=== PATIENT | male | born 1980 | race Caucasian/White ===

== ENCOUNTER 2016-11-22 18:25 | Emergency (ER) | payer MEDICAID ==
[~2016-11-22] VITALS: Ht 175.3 cm; Wt 89.0 kg
[2016-11-22 18:28] VITALS: Ht 175.3 cm; Wt 89.0 kg
[2016-11-22] MEDS ORDERED: FAMOTIDINE 20 MG INJ IV ONE (20:00)
[2016-11-22] MEDS ORDERED: LIDOCAINE/MYLANTA 40 ML BTL PO ONE (20:00)
[2016-11-22] MEDS ORDERED: ACETAMINOPHEN 325 MG TAB PO ONE (20:30)
[2016-11-22] MEDS ORDERED: SOD CHLORIDE 0.9% 1,000 ML IV ONE (20:30)
--- NOTE | 2016-11-22 20:37 | RADRPT ---
PROCEDURE: CT Abdomen and Pelvis without contrast CLINICAL INDICATION: Abdominal pain TECHNIQUE: Transaxial images were obtained through the abdomen and pelvis on a multi-slice scanner without the intravenous contrast administration. No oral contrast had previously been given. Sagit navarro and coronal re-formations were subsequently reconstructed. One or more of the following dose reduction techniques were used: - Automated exposure control. - Adjustment of the mA and/or kV according to patient size. - Use of iterative reconstruction technique. Radiation dose: CTDIvol = 14.49 mGy; DLP = 883.24 mGy-cm. COMPARISON: No prior studies are available for comparison. FINDINGS: Lung bases: Discoid atelectasis is seen within the posterior right lung base and vague ground-glass infiltrates are seen within the posterior lung bases. Liver: The liver is borderline enlarged with no focal lesion identified. Gallbladder: The wall is not thickened. No radiopaque stones are identified. Bile ducts: The intra and extrahepatic bile ducts are normal in caliber. Pancreas: Appears normal with no mass or inflammation evident. Spleen: Normal in size with no focal lesion. Adrenals: Normal with no mass identified. Kidneys, ureters and bladder: The kidneys are normal in size and there is no mass, pathological calc ification, or hydronephrosis evident. There is no perinephric stranding. The ureters are normal in c aliber and no ureteroliths are identified. The bladder appears unremarkable. Reproductive organs: Unremarkable. Stomach and bowel: The stomach is moderately distended with food debris. The small bowel appears un remarkable. There is mild concentric thickening of the wall of the rectum and stranding within the pararectal fat compatible with inflammatory change. The colon is otherwise unremarkable and there i s no evidence of bowel obstruction. Appendix: A normal vermiform appendix is evident. Peritoneum: No free intraperitoneal fluid or air is identified. There is a small fat containing left inguinal hernia. Aorta: Normal in caliber with no aneurysmal dilatation. IVC: Unremarkable. Lymph nodes: There are prominent inguinal nodes bilaterally which are largely composed of fat and th erefore benign in appearance. Osseous structures: There is mild diffuse anterior degenerative enthesopathy seen to the spine. IMPRESSION: 1. Mild concentric thickening of the rectal wall with stranding within the perirectal fat suspiciou s for proctitis. There is no evidence of bowel obstruction. The stomach is mildly distended with f ood debris. There is a normal vermiform appendix. 2. Small fat containing left inguinal hernia. 3. No abscess, free intraperitoneal fluid or free intraperitoneal air is identified. 4. Borderline hepatomegaly with no focal lesion. 5. Diffuse degenerative endplate changes seen to the visualized spine. 6. Discoid atelectasis seen within the posterior right right lung base with vague ground-glass infi ltrates seen within the posterior lower lobes. Physician Adolfo Date Time Electronically viewed and signed by Physician Adolfo on 11/22/2016 20:37 RH/
[2016-11-22 21:04] LABS: BASOPHILS % 0.3 % (0.0-2.0); EOSINOPHILS # 0.2 10^3/ul (0.0-0.5); EOSINOPHILS % 1.1 % (0.0-7.0); HEMATOCRIT 41.1 % (42.0-52.0); HEMOGLOBIN 14.5 g/dl (14.0-18.0); LYMPHOCYTES # 1.3 10^3/ul (0.8-2.9); LYMPHOCYTES % 8.9 % (15.0-51.0); MEAN CORPUSCULAR HEMOGLOBIN 30.3 pg (29.0-33.0); MEAN CORPUSCULAR HGB CONC 35.3 g/dl (32.0-37.0); MEAN PLATELET VOLUME 10.9 fl (7.4-10.4); MONOCYTE # 1.2 10^3/ul (0.3-0.9); MONOCYTES % 8.1 % (0.0-11.0); NEUTROPHILS % 81.1 % (39.0-77.0); PLATELET COUNT 238 10^3/UL (140-415); RED BLOOD COUNT 4.78 10^6/ul (4.70-6.10); RED CELL DISTRIBUTION WIDTH 12.7 % (11.5-14.5)
[2016-11-22 21:09] LABS: ADD UMIC YES; UR ASCORBIC ACID NEGATIVE (NEGATIVE); UR BILIRUBIN (Dip) NEGATIVE (NEGATIVE); UR BLOOD (Dip) NEGATIVE (NEGATIVE); UR CLARITY CLEAR (CLEAR); UR COLOR YELLOW (YELLOW); UR GLUCOSE (Dip) 1+ mg/dL (NEGATIVE); UR KETONES (Dip) NEGATIVE (NEGATIVE); UR LEUKOCYTE ESTERASE (Dip) NEGATIVE Leu/ul (NEGATIVE); UR NITRITE (Dip) NEGATIVE (NEGATIVE); UR RBC 5 /HPF (0-5); UR SPECIFIC GRAVITY (Dip) 1.027 (1.003-1.030); UR TOTAL PROTEIN (Dip) 1+ mg/dl (NEGATIVE); UR UROBILINOGEN (Dip) 2+ mg/dL (NEGATIVE)
[2016-11-22 21:37] LABS: ALBUMIN 4.4 g/dl (3.3-4.9); ALBUMIN/GLOBULIN RATIO 1.07; BILIRUBIN,INDIRECT 1.2 mg/dl (0-1.1); BILIRUBIN,TOTAL 1.2 mg/dl (0.2-1.3); CALCIUM 9.4 mg/dl (8.4-10.2); CREATININE 1.11 mg/dl (0.61-1.24); POTASSIUM 3.8 mmol/L (3.5-5.1); TOTAL PROTEIN 8.5 g/dl (6.1-8.1)
[2016-11-22] MEDS ORDERED: morphine 4 MG/ML VIAL IV STA (22:00)
[2016-11-22] MEDS ORDERED: metroNIDAZOLE 500 MG TAB PO ONE (23:00)
[2016-11-22] MEDS ORDERED: CIPROFLOXACIN 500 MG TAB PO ONE (23:00)
[2016-11-22] MEDS ORDERED: HYDR-906 PO (23:02)
[2016-11-22] MEDS ORDERED: CIPR500T4 PO (23:02)
[2016-11-22] MEDS ORDERED: METR500T PO (23:02)
[2016-11-22 23:30] VITALS: BP 129/88; PULSE 86; RESP 20; TEMP 98.9
--- NOTE | 2016-11-22 23:43 | ERD ---
ER Documentation Chief Complaint Date/Time DATE: 11/22/16 TIME: 23:39 Chief Complaint upper abd pain radaiting to right thigh, right lower leg x 2 days HPI 36-year-old male patient with a past medical history of colitis and gastritis presents to the ED complaining of diffuse abdominal pain as well as right buttocks pain that radiates down his leg that started about 2 days ago. Patient reports that he started to have a fever earlier today. Describes the pain as sharp and rates it a 10 out of 10. Denies any chest pain, shortness of breath, wheezing, nausea, vomiting, diarrhea, constipation. States that he does take Nexium for his gastritis. Denies any melena, hematemesis. Denies any scrotal pain, dysuria. ROS All systems reviewed and are negative except as per history of present illness. Medications Home Meds Active Scripts Hydrocodone/Acetaminophen (Antoine 5-325 Tablet) 1 Each Tablet, 1 TAB PO Q6H Y for PAIN, #7 TAB Prov:KHUSHI ROLAND PA-C 11/22/16 Ciprofloxacin Hcl* (Ciprofloxacin Hcl*) 500 Mg Tablet, 500 MG PO BID for 10 Days , TAB Prov:KHUSHI ROLAND PA-C 11/22/16 Metronidazole* (Flagyl*) 500 Mg Tablet, 500 MG PO TID for 10 Days, TAB Prov:KHUSHI ROLAND PA-C 11/22/16 Allergies Allergies: Coded Allergies: No Known Allergy (Unverified , 11/22/16) PMhx/Soc History of Surgery: No Anesthesia Reaction: No Hx Neurological Disorder: No Hx Respiratory Disorders: No Hx Cardiac Disorders: No Hx Psychiatric Problems: No Hx Miscellaneous Medical Probl: No Hx Alcohol Use: No Hx Substance Use: No Hx Tobacco Use: No Smoking Status: Never smoker Physical Exam Vitals Vital Signs Date Time Temp Pulse Resp B/P Pulse Ox O2 Delivery O2 Flow Rate FiO2 11/22/16 23:30 98.9 86 20 129/88 98 Room Air 11/22/16 18:28 100.3 106 20 132/92 98 Physical Exam Const: [id number], well-nourished. In no acute distress. Head: Atraumatic, normocephalic Eyes: Normal Conjunctiva without injection. No purulent discharge. ENT: Normal external ear, nose. Moist oropharynx without tonsillar exudates. Non -erythematous pharynx. Uvula midline. No drooling. No trismus. Neck: No cervical midline tenderness. Full range of motion. No meningismus. No cervical lymphadenopathy. No JVD. Resp: Clear to auscultation bilaterally. No wheezing, rhonchi, rales, or crackles. No accessory muscle use. No retractions. Cardio: Regular rate and rhythm. No murmurs, rubs or gallops. Abd: Soft, diffuse tenderness, non distended. Normal bowel sounds. No palpable masses. No rebound tenderness. No guarding. Negative McBurney's point. Negative psoas sign. Negative obturator sign. Skin: No petechiae or rashes Back: No midline tenderness. No CVA tenderness. Ext: No cyanosis, or edema. Neur: Awake and alert. Normal gait. Normal coordination. Psych: Normal Mood and Affect Results 24 hrs Laboratory Tests Test 11/22/16 20:41 White Blood Count 15.010^3/ul Red Blood Count 4.7810^6/ul Hemoglobin 14.5g/dl Hematocrit 41.1% Mean Corpuscular Volume 86.0fl Mean Corpuscular Hemoglobin 30.3pg Mean Corpuscular Hemoglobin Concent 35.3g/dl Red Cell Distribution Width 12.7% Platelet Count 34822^3/UL Mean Platelet Volume 10.9fl Neutrophils % 81.1% Lymphocytes % 8.9% Monocytes % 8.1% Eosinophils % 1.1% Basophils % 0.3% Nucleated Red Blood Cells % 0.0/100WBC Neutrophils # (Manual) 12.210^3/ul Lymphocytes # 1.310^3/ul Monocytes # 1.210^3/ul Eosinophils # 0.210^3/ul Basophils # 0.010^3/ul Nucleated Red Blood Cells # 0.010^3/ul Urine Color YELLOW Urine Clarity CLEAR Urine pH 6.0 Urine Specific [place] 1.027 Urine Ketones NEGATIVEmg/dL Urine Nitrite NEGATIVEmg/dL Urine Bilirubin NEGATIVEmg/dL Urine Urobilinogen 2+mg/dL Urine Leukocyte Esterase NEGATIVELeu/ul Urine Microscopic RBC 5/HPF Urine Microscopic WBC 1/HPF Urine Hemoglobin NEGATIVEmg/dL Urine Glucose 1+mg/dL Urine Total Protein 1+mg/dl Sodium Level 140mmol/L Potassium Level 3.8mmol/L Chloride Level 98mmol/L Carbon Dioxide Level 27mmol/L Anion Gap 19 Blood Urea Nitrogen 22mg/dl Creatinine 1.11mg/dl Glucose Level 132mg/dl Calcium Level 9.4mg/dl Total Bilirubin 1.2mg/dl Direct Bilirubin 0.00mg/dl Indirect Bilirubin 1.2mg/dl Aspartate Amino Transf (AST/SGOT) 117IU/L Alanine Aminotransferase (ALT/SGPT) 169IU/L Alkaline Phosphatase 141IU/L Total Protein 8.5g/dl Albumin 4.4g/dl Globulin 4.10g/dl Albumin/Globulin Ratio 1.07 Lipase 40U/L Current Medications Medications (Trade) Dose Ordered Sig/Campos Route PRN Reason Start Time Stop Time Status Last Admin Dose Admin Famotidine (Pepcid Iv) 20 mg ONCE ONCE IV 11/22/16 20:00 11/22/16 20:04 DC 11/22/16 20:51 Miscellaneous Medication 40 ml 40 ml ONCE ONCE PO 11/22/16 20:00 11/22/16 20:04 DC 11/22/16 20:50 Sodium Chloride (NS) 1,000 ml @ 1,000 mls/hr Q1H ONCE IV 11/22/16 20:30 11/22/16 21:29 DC 11/22/16 20:51 Acetaminophen (Tylenol Tab) 650 mg ONCE ONCE PO 11/22/16 20:30 11/22/16 20:31 DC 11/22/16 20:50 Morphine Sulfate (morphine) 4 mg ONCE STAT IV 11/22/16 22:00 11/22/16 22:01 DC 11/22/16 22:12 Ciprofloxacin (Cipro) 500 mg ONCE ONCE PO 11/22/16 23:00 11/22/16 23:01 DC 11/22/16 23:15 Metronidazole (Flagyl) 500 mg ONCE ONCE PO 11/22/16 23:00 11/22/16 23:01 DC 11/22/16 23:15 Procedures/MDM 36-year-old male patient with no significant past medical history presents to the ED complaining of diffuse abdominal pain as well as right buttocks pain that radiates down his right leg. Patient has a fever of 100.3. Patient has tachycardia of 106. Patient was further worked up with CBC, CMP, lipase, UA, CT of the abdomen and pelvis without contrast. Patient's pain and symptoms have improved after treatment with 1 L of normal saline, 4 mg IV morphine, 20 mg IV famotidine, GI cocktail. CBC: Leukocytosis of 15.1 . No e/o of systemic infection. No e/o anemia. CMP: No e/o severe acidosis, alkalosis, renal failure, diabetic ketoacidosis, liver disease Lipase within normal limits. Urine: No leukocyte esterase, no nitrites, no hematuria. PROCEDURE: CT Abdomen and Pelvis without contrast CLINICAL INDICATION: Abdominal pain TECHNIQUE: Transaxial images were obtained through the abdomen and pelvis on a multi-slice scanner without the intravenous contrast administration. No oral contrast had previously been given. Sagittal and coronal re-formations were subsequently reconstructed. One or more of the following dose reduction techniques were used: - Automated exposure control. - Adjustment of the mA and/or kV according to patient size. - Use of iterative reconstruction technique. Radiation dose: CTDIvol = 14.49 mGy; DLP = 883.24 mGy-cm. COMPARISON: No prior studies are available for comparison. FINDINGS: Lung bases: Discoid atelectasis is seen within the posterior right lung base and vague ground-glass infiltrates are seen within the posterior lung bases. Liver: The liver is borderline enlarged with no focal lesion identified. Gallbladder: The wall is not thickened. No radiopaque stones are identified. Bile ducts: The intra and extrahepatic bile ducts are normal in caliber. Pancreas: Appears normal with no mass or inflammation evident. Spleen: Normal in size with no focal lesion. Adrenals: Normal with no mass identified. Kidneys, ureters and bladder: The kidneys are normal in size and there is no mass, pathological calcification, or hydronephrosis evident. There is no perinephric stranding. The ureters are normal in caliber and no ureteroliths are identified. The bladder appears unremarkable. Reproductive organs: Unremarkable. Stomach and bowel: The stomach is moderately distended with food debris. The small bowel appears unremarkable. There is mild concentric thickening of the wall of the rectum and stranding within the pararectal fat compatible with inflammatory change. The colon is otherwise unremarkable and there is no evidence of bowel obstruction. Appendix: A normal vermiform appendix is evident. Peritoneum: No free intraperitoneal fluid or air is identified. There is a small fat containing left inguinal hernia. Aorta: Normal in caliber with no aneurysmal dilatation. IVC: Unremarkable. Lymph nodes: There are prominent inguinal nodes bilaterally which are largely composed of fat and therefore benign in appearance. Osseous structures: There is mild diffuse anterior degenerative enthesopathy seen to the spine. IMPRESSION: 1. Mild concentric thickening of the rectal wall with stranding within the perirectal fat suspicious for proctitis. There is no evidence of bowel obstruction. The stomach is mildly distended with food debris. There is a normal vermiform appendix. 2. Small fat containing left inguinal hernia. 3. No abscess, free intraperitoneal fluid or free intraperitoneal air is identified. 4. Borderline hepatomegaly with no focal lesion. 5. Diffuse degenerative endplate changes seen to the visualized spine. 6. Discoid atelectasis seen within the posterior right right lung base with vague ground-glass infiltrates seen within the posterior lower lobes. Patient symptoms are likely secondary to proctitis. A differential diagnosis considered includes but is not limited to gastritis, GERD, peptic ulcer disease , cholecystitis, choledocholithiasis, cholangitis, pancreatitis, appendicitis, bowel obstruction, ileus, volvulus, nephrolithiasis, pyelonephritis, hepatitis, perforated viscus, diverticulitis, abdominal hernia, acute abdomen, mesenteric ischemia or other emergent conditions. This case was discussed with my supervising physician Dr. Ibarra who recommended Cipro and Flagyl for colitis. Dr. Ibarra stated that patient can be managed on an outpatient basis. Discharge medications: Antoine, Ciprofloxacin, Flagyl Follow up with primary care physician in 1-2 days for referral to health program director. Instructed patient to return to the ED sooner for any worsening symptoms. Patient's questions were answered. Patient understood and agreed with discharge plan. Patient discharged stable. Departure Diagnosis: Primary Impression: Abdominal pain Abdominal location: generalized Qualified Code: R10.84 - Generalized abdominal pain Condition: Stable Patient Instructions: Abdominal Pain, What Is Ulcerative Colitis?, Management of Ulcerative Colitis: Lifestyle Referrals: COMMUNITY CLINICS YOU HAVE RECEIVED A MEDICAL SCREENING EXAM AND THE RESULTS INDICATE THAT YOU DO NOT HAVE A CONDITION THAT REQUIRES URGENT TREATMENT IN THE EMERGENCY DEPARTMENT. FURTHER EVALUATION AND TREATMENT OF YOUR CONDITION CAN WAIT UNTIL YOU ARE SEEN IN YOUR DOCTORS OFFICE WITHIN THE NEXT 1-2 DAYS. IT IS YOUR RESPONSIBILITY TO MAKE AN APPOINTMENT FOR FOLOW-UP CARE. IF YOU HAVE A PRIMARY DOCTOR --you should call your primary doctor and schedule an appointment IF YOU DO NOT HAVE A PRIMARY DOCTOR YOU CAN CALL OUR PHYSICIAN REFERRAL HOTLINE AT IF YOU CAN NOT AFFORD TO SEE A PHYSICIAN YOU CAN CHOSE FROM THE FOLLOWING [facility] [address] [facility] [address] [facility] [address] [facility] [address] [facility] [address] [facility]. [facility] [address] [facility]. [facility] YOU HAVE RECEIVED A MEDICAL SCREENING EXAM AND THE RESULTS INDICATE THAT YOU DO NOT HAVE A CONDITION THAT REQUIRES URGENT TREATMENT IN THE EMERGENCY DEPARTMENT. FURTHER EVALUATION AND TREATMENT OF YOUR CONDITION CAN WAIT UNTIL YOU ARE SEEN IN YOUR DOCTORS OFFICE WITHIN THE NEXT 1-2 DAYS. IT IS YOUR RESPONSIBILITY TO MAKE AN APPOINTMENT FOR FOLOW-UP CARE. IF YOU HAVE A PRIMARY DOCTOR --you should call your primary doctor and schedule and appointment IF YOU DO NOT HAVE A PRIMARY DOCTOR YOU CAN CALL OUR PHYSICIAN REFERRAL HOTLINE AT . IF YOU CAN NOT AFFORD TO SEE A PHYSICIAN YOU CAN CHOSE FROM THE FOLLOWING [facility]: [facility] [address] [place] [address] [facility] [address] [place] [address] [facility] [address] [place] [address] [facility] URGENT CARE/SPECIALTIES Additional Instructions: Llame al doctor MALAURENCE y yesi trevon EL PARA DENTRO DE 1-2 MANZO para un referido a un gastroenterlogo. Dgale a la secretaria que nosotros le instruimos hacer esta el.Avise o llame si gamez condicin se empeora antes de la el. Regresa aqui si peor o no mejor. La medicina que se le recet puede causarle sueo.NO DEBE MANEJAR NI OPERAR MAQUINARIAS PELIGROSAS mientras esta tomando esta medicina! KHUSHI ROLAND PA-C Nov 22, 2016 23:43 KHUSHI ROLAND PA-C Nov 22, 2016 23:43
== END 2016-11-22 23:30 | disposition home or self-care (01) ==
LOC: FTE 18:25
DX: R10.84 Generalized abdominal pain (principal)
CPT/HCPCS: 36415; 74176; 80053; 81001; 83690; 85025; 96374; 96375; J2270; J7030; Z7502; Z7610